=== PATIENT | female | born 1985 | race Caucasian/White ===

== ENCOUNTER 2021-04-18 09:33 | Emergency (ER) | payer OTHER, SELFPAY ==
[2021-04-18 09:35] VITALS: BP 136/88; PULSE 77; RESP 16; TEMP 36.4; O2SAT 92
--- NOTE | 2021-04-18 10:07 | PC.NURSE ---
pt refusing blood draw. pt states I'm going to skip that. pt educated on labs ordered and chooses to refuse blood being drawn.
[2021-04-18 10:10] LABS: Add Urine Microscopic? YES; Appearance Urine Clear (Clear); Bacteria Urine Trace /hpf; Bilirubin Urine Negative (Negative); Blood Urine Negative (Negative); Color Urine Yellow (Yellow); Glucose Urine UA Negative (Negative); Ketones Urine 2+ mg/dL (Negative); Leukocyte Esterase Ur Negative LEU/UL (Negative); Mucus Urine Rare /lpf; Nitrate Urine Negative (Negative); Protein Urine Negative (Negative); RBC Urine 0-2 /hpf (0-2); Specific Grav Ur 1.013 (1.001-1.035); Urobilinogen Urine Negative mg/dL (<2.0); WBC Urine 0-3 /hpf
--- NOTE | 2021-04-18 11:45 | ED.FEMALEGU ---
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 Patient thinks there is a fingernail in her vagina. She denies any vaginal discharge or bleeding. She states that she has used Monistat cream 3 days ago. MD elicited complaint: pelvic pain Onset (ago): day(s) (3) Location of symptoms: vaginal Severity: moderate Female Urogenital Radiation: Non-Radiating Consistency: constant Vaginal discharge: none Vaginal bleeding: none Exacerbating factors: none Relieving factors: none Associated symptoms: denies other symptoms Sexual activity: New Sexual Partners Patient : No Possible : unsure if Review of Systems Review of Systems: All systems reviewed & are unremarkable except as noted in HPI and below Constitutional: Constitutional: Reports no additional constitutional complaints Eyes: Eyes: Reports no additional eye complaints ENT: Reports system reviewed and no additional complaints, except as documented Cardiovascular: Cardiovascular: Reports no additional cardiovascular complaints Respiratory: Respiratory: Reports no additional respiratory complaints Gastrointestinal: Gastrointestinal: Reports no additional gastrointestinal complaints Genitourinary: Genitourinary: Reports as per HPI Musculoskeletal: Musculoskeletal: Reports no additional musculoskeletal complaints Integumentary/Breasts: Skin/Breast: Reports system reviewed and no additional complaints, except as docu Neurologic: Reports system reviewed and no additional complaints, except as documented Psychiatric: Psychiatric: Reports no additional psychiatric complaints Exam Narrative: GENERAL: Well-appearing, well-nourished, and in no acute distress. HEAD: Normocephalic, atraumatic. EYES: PERRLA and EOMI. NECK: Supple. CHEST: Clear to auscultation. No respiratory distress. HEART: Regular rate and rhythm. No murmur heard. Normal peripheral pulses. ABDOMEN: Soft, nontender, nondistended, normal active bowel sounds. Normal external genitalia ,Vagina thick white discharge present , no FB EXTREMITIES: Normal range of motion. No edema. SKIN: Warm, dry, no rash. NEURO: No focal deficits. Alert and oriented x3. PSYCH: Normal mood and affect. Course Course Emergency Course: Thoroughly swabbed the right vaginal vault with long Q tip X 2 ,no FB noted . informed pt about my findings, she wanted a second opinion.Recommended to follow with OB .informed her the vaginal cultures will take about 2 days , advised her to take antibiotic as prescribed . Vital Signs Vital signs: Vital Signs Temperature 36.4 C L 04/18/21 09:35 Pulse Rate 77 04/18/21 09:35 Respiratory Rate 16 04/18/21 09:35 Blood Pressure 136/88 04/18/21 09:35 Pulse Oximetry 92 04/18/21 09:35 Temperature 36.4 C L 04/18/21 09:35 Pulse Rate 77 04/18/21 09:35 Respiratory Rate 16 04/18/21 09:35 Blood Pressure 136/88 04/18/21 09:35 Pulse Oximetry 92 04/18/21 09:35 MDM - Female Genitourinary Lab Data Labs: Lab Results 04/18/21 04/18/21 04/18/21 Range/Units 09:46 11:34 11:34 Urine Color Yellow (Yellow) Urine Appearance Clear (Clear) Urine pH 6.0 (5.0-9.0) Ur Specific [place] 1.013 (1.001-1.035) Urine Protein Negative (Negative) mg/dL Urine Glucose (UA) Negative (Negative) mg/dL Urine Ketones 2+ H (Negative) mg/dL Ur Blood (Man) Negative (Negative) Urine Nitrate Negative (Negative) Urine Bilirubin Negative (Negative) Urine Urobilinogen Negative (<2.0) mg/dL Leukocyte Esterase Rfl Negative (Negative) DYLAN/UL Urine RBC 0-2 (0-2) /hpf Urine WBC 0-3 /hpf Urine Bacteria Trac
--- NOTE | 2021-04-18 11:46 | PC.NURSE ---
Pelvic exam done per edp Lorenza with this rn at bedside. After exam ended and edp left bedside pt asking for second opinion prior to departure. EDP Informed and states that he will refer her to a gynocologist for follow up. Pt informed. Pt will not look staff in the eyes.
--- NOTE | 2021-04-18 12:16 | PC.NURSE ---
EDP at bedside explaining plan of care and dc plan.
[2021-04-18 12:38] VITALS: BP 136/88; PULSE 77; RESP 16; O2SAT 92
== END 2021-04-18 12:38 | disposition home or self-care (01) ==
PROVIDERS: Emergency Medicine; Physician Assistant; Emergency Provider Family Medicine
DX: N76.0 Acute vaginitis (principal)
CPT/HCPCS: 81001; 81025; 87070; 87491; 87591; 87808; 99284